=== PATIENT | male | born 1975 | race American Indian/Alaskan Native ===

== ENCOUNTER 2018-10-08 20:20 | Emergency (ER) | payer SELFPAY ==
--- NOTE | 2018-10-08 22:20 | Emergency Department Report ---
ED ENT HPI - General Chief complaint: Sore Throat Stated complaint: SORE THROAT Time Seen by Provider: 10/08/18 22:15 Source: patient Mode of arrival: Ambulatory Limitations: No Limitations - History of Present Illness Initial comments: 43 y/o male comes in for sore throat times 5 days. Fever and sweats. Nausea and dry heaves. Not able to eats. MD complaint: sore throat, difficulty swallowing - Related Data Previous Rx's Medication Instructions Recorded Last Taken Type Ondansetron [Zofran Odt] 4 mg PO Q8HR PRN #20 tab.rapdis 11/26/15 Unknown Rx traMADol [Ultram 50 MG tab] 50 mg PO Q6HR PRN #20 tablet 11/26/15 Unknown Rx Allergies Allergy/AdvReac Type Severity Reaction Status Date / Time No Known Allergies Allergy Verified 11/26/15 09:25 ED Dental HPI - General Chief complaint: Sore Throat Stated complaint: SORE THROAT Time Seen by Provider: 10/08/18 22:15 Source: patient Mode of arrival: Ambulatory Limitations: No Limitations - Related Data Previous Rx's Medication Instructions Recorded Last Taken Type Ondansetron [Zofran Odt] 4 mg PO Q8HR PRN #20 tab.rapdis 11/26/15 Unknown Rx traMADol [Ultram 50 MG tab] 50 mg PO Q6HR PRN #20 tablet 11/26/15 Unknown Rx Allergies Allergy/AdvReac Type Severity Reaction Status Date / Time No Known Allergies Allergy Verified 11/26/15 09:25 ED Review of Systems ROS: Stated complaint: SORE THROAT Other details as noted in HPI ED Past Medical Hx - Past Medical History Previous Medical History?: No - Surgical History Past Surgical History?: Yes Additional Surgical History: pins placed in left ring finger - Social History Smoking Status: Never Smoker Substance Use Type: Alcohol, Marijuana - Medications Home Medications: Home Medications Medication Instructions Recorded Confirmed Last Taken Type Ondansetron [Zofran Odt] 4 mg PO Q8HR PRN #20 tab.rapdis 11/26/15 Unknown Rx traMADol [Ultram 50 MG tab] 50 mg PO Q6HR PRN #20 tablet 11/26/15 Unknown Rx ED Physical Exam - General Limitations: No Limitations ED Course Vital Signs 10/08/18 21:07 Temperature 100.0 F H Pulse Rate 84 Respiratory 18 Rate Blood Pressure 97/71 [Left] O2 Sat by Pulse 98 Oximetry Critical care attestation.: If time is entered above; I have spent that time in minutes in the direct care of this critically ill patient, excluding procedure time. ED Disposition Condition: Stable
[2018-10-08] MEDS ORDERED: TYLENOL PO ONE (22:24)
--- NOTE | 2018-10-08 22:24 | Event Note ---
ED Screening Note ED Screening Note: 43 y/o male comes in for sore throat times 5 days. Fever and sweats. Nausea and dry heaves. Not able to eats. Not able to swallow spitting more. This initial assessment/diagnostic orders/clinical plan/treatment(s) is/are subject to change based on patients health status, clinical progression and re-assessment by fellow clinical providers in the ED. Further treatment and workup at subsequent clinical providers discretion. Patient/guardian urged not to elope from the ED as their condition may be serious if not clinically assessed and managed. Initial orders include:
[2018-10-08 22:48] LABS: Basophils # (Auto) 0.1 K/mm3 (0.0-0.1); Basophils % (Auto) 0.4 % (0.0-1.8); Eosinophils # (Auto) 0.1 K/mm3 (0.0-0.4); Eosinophils % (Auto) 0.4 % (0.0-4.3); Hematocrit 51.9 % (35.5-45.6); Hemoglobin 18.1 gm/dl (11.8-15.2); Lymphocytes # (Auto) 2.8 K/mm3 (1.2-5.4); Lymphocytes % (Auto) 17.6 % (13.4-35.0); Mean Corpuscular HGB Conc 35 % (32-34); Mean Corpuscular Volume 94 fl (84-94); Monocytes # (Auto) 1.5 K/mm3 (0.0-0.8); Monocytes % (Auto) 9.5 % (0.0-7.3); Platelet Count 205 K/mm3 (140-440); Red Cell Distribution Width 13.1 % (13.2-15.2)
[2018-10-08] MEDS ORDERED: LIDOCAINE VISCOUS 2% PO ONE (23:02)
[2018-10-08] MEDS ORDERED: NACL 0.9% 1000 ML 1,000 ML IV ONE (23:02)
[2018-10-08] MEDS ORDERED: TORADOL IV ONE (23:02)
[2018-10-08] MEDS ORDERED: DECADRON IV ONE (23:02)
--- NOTE | 2018-10-08 23:03 | Emergency Department Report ---
ED General Adult HPI - General Chief complaint: Sore Throat Stated complaint: SORE THROAT Time Seen by Provider: 10/08/18 22:15 Source: patient, RN notes reviewed Mode of arrival: Ambulatory Limitations: No Limitations - History of Present Illness Initial comments: This is a pleasant 43-year-old gentleman who is not known to this provider previously. The patient states he has no chronic medical conditions. He does not have a local primary care doctor. He presents to the ER today with a complaint of nontraumatic throat pain, pain with swallowing, positive sick contact in his significant other, and subjective fever. Symptoms intermittently over the past 4 days. They worse with swallowing. They decrease with rest. Symptoms also decrease in the ER with supportive care. Patient denied headache, chest pain, abdominal pain, shortness of breath. Patient states he is only sexually active with his female partner. States no urinary symptoms, no IV drug use, no antibiotic use, and no recent travel outside the country -: Gradual, days(s) Location: mouth Radiation: non-radiation Severity scale (0 -10): 10 Quality: aching Consistency: intermittent Improves with: other Worsens with: other - Related Data Previous Rx's Medication Instructions Recorded Last Taken Type Ondansetron [Zofran Odt] 4 mg PO Q8HR PRN #20 tab.rapdis 11/26/15 Unknown Rx traMADol [Ultram 50 MG tab] 50 mg PO Q6HR PRN #20 tablet 11/26/15 Unknown Rx Acetaminophen [Non-Aspirin Extra 500 mg PO Q6HR PRN #30 tablet 10/09/18 Unknown Rx Strength] Ibuprofen [Motrin] 600 mg PO Q8H PRN #30 tablet 10/09/18 Unknown Rx Allergies Allergy/AdvReac Type Severity Reaction Status Date / Time No Known Allergies Allergy Verified 11/26/15 09:25 ED Review of Systems ROS: Stated complaint: SORE THROAT Other details as noted in HPI Constitutional: fever. denies: malaise, weakness Eyes: denies: eye discharge ENT: throat pain Respiratory: denies: cough Cardiovascular: denies: chest pain Gastrointestinal: denies: abdominal pain, nausea, vomiting Genitourinary: denies: dysuria Musculoskeletal: denies: back pain Skin: denies: lesions Neurological: denies: weakness ED Past Medical Hx - Past Medical History Previous Medical History?: No - Surgical History Past Surgical History?: Yes Additional Surgical History: pins placed in left ring finger - Social History Smoking Status: Current Some Day Smoker Substance Use Type: Alcohol, Marijuana - Medications Home Medications: Home Medications Medication Instructions Recorded Confirmed Last Taken Type Ondansetron [Zofran Odt] 4 mg PO Q8HR PRN #20 tab.rapdis 11/26/15 Unknown Rx traMADol [Ultram 50 MG tab] 50 mg PO Q6HR PRN #20 tablet 11/26/15 Unknown Rx Acetaminophen [Non-Aspirin Extra 500 mg PO Q6HR PRN #30 tablet 10/09/18 Unknown Rx Strength] Ibuprofen [Motrin] 600 mg PO Q8H PRN #30 tablet 10/09/18 Unknown Rx ED Physical Exam - General Limitations: No Limitations General appearance: alert, in no apparent distress - Head Head exam: Present: atraumatic, normocephalic - Eye Eye exam: Present: normal appearance, EOMI. Absent: nystagmus - ENT ENT exam: Present: normal orophraynx (pharyngeal erythema noted. No stridor, pus, streaking noted. No discharge noted.), mucous membranes moist, TM's normal bilaterally, normal external ear exam - Neck Neck exam: Present: normal inspection, full ROM, lymphadenopathy. Absent: tenderness, meningismus - Respiratory Respiratory exam: Present: normal lung sounds bilaterally. Absent: respiratory distress - Cardiovascular Cardiovascular Exam: Present: regular rate, normal rhythm, normal heart sounds. Absent: bradycardia, tachycardia, irregular rhythm, systolic murmur, diastolic murmur, rubs, gallop - GI/Abdominal GI/Abdominal exam: Present: soft. Absent: distended, tenderness, guarding, rebound, rigid, pulsatile mass - Rectal Rectal exam: Present: deferred - Extremities Exam Extremities exam: Present: normal inspection, full ROM, other (2+ pulses noted in the bilateral upper, lower extremities. There is no long bony tenderness. The pelvis is stable. Muscular compartments are soft.). Absent: pedal edema, joint swelling, calf tenderness - Back Exam Back exam: Present: normal inspection, full ROM. Absent: tenderness, CVA tenderness (R), CVA tenderness (L), paraspinal tenderness, vertebral tenderness - Neurological Exam Neurological exam: Present: alert, oriented X3, normal gait, other (there is no facial droop. The tongue is midline. The extraocular movements are intact bilaterally. 5/ 5 strength bilateral upper, lower extremities. Sensation intact to light touch bilateral upper, lower extremities bilaterally. Sensation is intact to light touch in the bilateral V1, V2, V3 distribution.). Absent: motor sensory deficit - Psychiatric Psychiatric exam: Present: normal affect, normal mood - Skin Skin exam: Present: warm, dry, intact, normal color. Absent: rash ED Course Vital Signs 10/08/18 10/08/18 10/08/18 21:07 22:17 22:29 Temperature 100.0 F H 100.0 F H Pulse Rate 84 94 H Respiratory 18 18 18 Rate Blood Pressure 109/73 Blood Pressure 97/71 [Left] O2 Sat by Pulse 98 95 Oximetry - Reevaluation(s) Reevaluation #1: 10/09/18 00:14 Differential diagnosis, including not limited to: Pharyngitis, reactive lymphadenopathy Assessment and plan: 43-year-old gentleman with probable pharyngitis and reactive lymphadenopathy. Has a low-grade temperature, but otherwise, has reas suring vital signs. Able to tolerate liquid feeds, liquid medicines, his exam was not consistent with abscess or acute airway compromise at this time. Rapid strep screen is pending at this time. 10/09/18 00:15 Laboratory studies were ordered prior to my personal evaluation of the patient. Leukocytosis as expected, given clinical diagnosis of pharyngitis at this time. Patient speaking in full sentences with no stridor or dysphonia, there is no elevation of the base of the tongue Reevaluation #2: 10/09/18 00:57 Rapid strep screen negative. Patient feels improved after supportive care. He will be discharged at this time. Appropriate counseling and anticipatory guidance is provided. ED Medical Decision Making - Lab Data Result diagrams: 10/08/18 22:29 Vital Signs 10/08/18 10/08/18 10/08/18 21:07 22:17 22:29 Temperature 100.0 F H 100.0 F H Pulse Rate 84 94 H Respiratory 18 18 18 Rate Blood Pressure 109/73 Blood Pressure 97/71 [Left] O2 Sat by Pulse 98 95 Oximetry Lab Results 10/08/18 Range/Units 22:29 WBC 15.8 H (4.5-11.0) K/mm3 RBC 5.50 H (3.65-5.03) M/mm3 Hgb 18.1 H (11.8-15.2) gm/dl Hct 51.9 H (35.5-45.6) % MCV 94 (84-94) fl MCH 33 H (28-32) pg MCHC 35 H (32-34) % RDW 13.1 L (13.2-15.2) % Plt Count 205 (140-440) K/mm3 Lymph % (Auto) 17.6 (13.4-35.0) % [place] % (Auto) 9.5 H (0.0-7.3) % Eos % (Auto) 0.4 (0.0-4.3) % Baso % (Auto) 0.4 (0.0-1.8) % Lymph # 2.8 (1.2-5.4) K/mm3 [place] # 1.5 H (0.0-0.8) K/mm3 Eos # 0.1 (0.0-0.4) K/mm3 Baso # 0.1 (0.0-0.1) K/mm3 Seg Neutrophils % 72.1 H (40.0-70.0) % Seg Neutrophils # 11.4 H (1.8-7.7) K/mm3 Critical care attestation.: If time is entered above; I have spent that time in minutes in the direct care of this critically ill patient, excluding procedure time. ED Disposition Clinical Impression: Pharyngitis Qualifiers: Pharyngitis/tonsillitis etiology: unspecified etiology Qualified Code(s): J02.9 - Acute pharyngitis, unspecified Disposition: TO HOME OR SELFCARE Is pt being admited?: No Does the pt Need Aspirin: No Condition: Stable Additional Instructions: Cultures were sent today, and results will be available in the next 3-5 days. Patient may contact the medical records department to obtain culture results, or have a primary care doctor contact the medical records department to obtain culture results. Advance diet as tolerated, drink plenty of fluids, patient may take the prescribed pain medications as needed/directed. Patient may also obtain relief from salt water gargles, hot salty soup, and other food/drinks as the patient is able to tolerate. Recommend follow-up with a primary care doctor in 7-10 days. Recommend abstinence from intimate activity until symptoms resolve, until patient is cleared by a primary care physician. Return to the emergency room by way of projectile vomiting, change in mental status, confusion, inability to tolerate liquid feeds, it, worsened or different symptoms not present on the initial emergency room evaluation. Prescriptions: Ibuprofen [Motrin] 600 mg PO Q8H PRN #30 tablet PRN Reason: Pain Acetaminophen [Non-Aspirin Extra Strength] 500 mg PO Q6HR PRN #30 tablet PRN Reason: Pain , Severe (7-10) Referrals: JACOB MOJICA MD [Primary Care Provider] - 3-5 Days
[2018-10-09 01:18] VITALS: BP 120/81
== END 2018-10-09 01:17 | disposition home or self-care (01) ==
LOC: ED 20:20
DX: J02.9 Acute pharyngitis, unspecified (principal); F17.200 Nicotine dependence, unspecified, uncomplicated; F12.10 Cannabis abuse, uncomplicated; Z79.899 Other long term (current) drug therapy
CPT/HCPCS: 36415; 85025; 87116; 87430; 96374; 96375; 99283; J1100; J1885; J7030

== ENCOUNTER 2021-02-14 16:13 | Emergency (ER) | payer SELFPAY | END 2021-02-15 03:48 | disposition home or self-care (01) | LOC: ED 16:13 | DX: H66.90 Otitis media, unspecified, unspecified ear (principal); Z53.21 Procedure and treatment not carried out due to patient leaving prior to being seen by health care provider ==